=== PATIENT | male | born 1985 | race Two or more races ===

== ENCOUNTER 2022-04-02 10:39 | Emergency (ER) | payer OTHER ==
[~2022-04-02] VITALS: Ht 162.6 cm; Wt 74.8 kg
[2022-04-02] MEDS ORDERED: MUPIROCIN1 G1 TOP (11:36)
[2022-04-02] MEDS ORDERED: AMOX-CLAV 875-1 EACH PO (11:36)
== END 2022-04-02 12:03 | disposition home or self-care (01) ==
LOC: ER 10:39
DX: S61.411A Laceration without foreign body of right hand, initial encounter (principal); W45.8XXA Other foreign body or object entering through skin, initial encounter; Y93.89 Activity, other specified; Y92.89 Other specified places as the place of occurrence of the external cause; Y99.8 Other external cause status